=== PATIENT | female | born 2005 | race African-American/Black ===

== ENCOUNTER → 2024-09-01 17:55 | Outpatient (BNVA) | payer OTHER, SELFPAY | DX: J02.8 Acute pharyngitis due to other specified organisms (principal); B97.89 Other viral agents as the cause of diseases classified elsewhere; R30.0 Dysuria | CPT/HCPCS: 81000; 87071; 87880 ==

== ENCOUNTER 2024-09-03 17:19 | Emergency (ER) | payer OTHER, SELFPAY ==
[2024-09-03 17:48] VITALS: BP 93/61; PULSE 112; TEMP 36.8; O2SAT 98; BMI 26.4
--- NOTE | 2024-09-03 19:12 | ED_ITS ---
HPI - Pediatric HENT General: Chief complaint: Headache Stated complaint: migraine Time Seen by Provider: 09/03/24 19:00 History of Present Illness: Patient has been ill for about a 4 days. Patient reports that on Saturday she was seen at urgent care and was thought to have a sinus infection and started on amoxicillin. Patient appears nontoxic. Patient appears no acute distress. Patient complains of headache. Related Data Previous Rx's ?Medication ?Instructions ?Recorded amoxicillin 500 mg capsule 500 mg PO TID #30 caps 08/09 11/29 Allergies Allergy/AdvReac Type Severity Reaction Status Date / Time No Known Allergies Allergy Verified 09/03/24 17:53 Pediatric ROS Review of Systems: ALL SYSTEMS: reviewed and no additional remarkable complaints except as stated PFSH ED PFSH: Social History Smoking and tobacco/nicotine status: never used tobacco/nicotine Pediatric Exam Const: Constitutional General: alert HENMT: Head: normocephalic Eyes: General: appearance normal, both eyes and all related structures Neck: Neck: full ROM Resp: Effort & Inspection: normal respiratory effort Cardio: Palpation: normal PMI GI: Palpation: nontender Spine/Pelvis: Cervical Spine: normal cervical lordosis Neuro: General: Yes tone normal Extrem: General: normal to inspection Course Vital Signs: Vital signs: Vital Signs Temperature 98.2 F 09/03/24 17:48 Pulse Rate 112 H 09/03/24 17:48 Blood Pressure 93/61 09/03/24 17:48 Pulse Oximetry 98 09/03/24 17:48 Oxygen Delivery Me thod Room Air 09/03/24 17:48 Medical Decision Making Medical Decision Making 18-year-old female comes in today with headache and sinus symptoms. Patient has been on amoxicillin since Saturday with minimal relief. Patient appears nontoxic. Respirations are even. Lungs are clear to auscultation. Patient is on extremities well. Vital signs are. Differential diagnosis rhinosinusitis, viral syndrome, influenza. Patient tested positive for influenza A. Reviewed exam with patient with recommendation for treatment and follow-up. Patient reported understanding. Lab Data Laboratory Results Influenza A (PCR) Positive (Negative) 09/03/24 18:40 Influenza Type B (PCR) Negative (Negative) 09/03/24 18:40 RSV (PCR) Negative (Negative) 09/03/24 18:40 SARS-CoV-2 (PCR) Negative (Negative) 09/03/24 18:40 No radiology studies performed this visit Discharge Plan Discharge Patient Disposition: Home Clinical Impression: Flu Condition: Stable Prescriptions: No Action amoxicillin 500 mg capsule 500 mg PO TID Qty: 30 0RF Discharge Orders: Discharge ED (Routine); Ordered 09/03/24 Ordered By: Amor Jolly Discharge Diet: Usual diet Discharge Activity: Increase activity as tolerated Patient Instructions: Flu - Adult Activity Restrictions/Additional Instructions: Drink plenty of fluids. Use acetaminophen and ibuprofen for pain and fever. Follow-up with primary care for further instructions. Return to ED for new concerns. Print Language: American Coding Level of Care Code ED [employer] for Kadeem Dooley
[2024-09-03] MEDS: acetaminophen 500 mg Tablet PO (19:18)
[2024-09-03] MEDS: ibuprofen 200 mg Tablet 400 MG PO (19:18)
[2024-09-03 19:27] LABS: Influenza A POSITIVE (Negative); Influenza B NEGATIVE (Negative); Respiratory Syncytial Virus Ce NEGATIVE (Negative); SARS-CoV-2 PCR NEGATIVE (Negative)
[2024-09-03 19:40] VITALS: BP 93/61; PULSE 112; O2SAT 98
== END 2024-09-03 19:41 | disposition home or self-care (01) ==
PROVIDERS: Emergency Provider Nurse Practitioner Family
DX: J10.1 Influenza due to other identified influenza virus with other respiratory manifestations (principal); Z11.52 Encounter for screening for COVID-19
CPT/HCPCS: 87637; 99283

== ENCOUNTER → 2025-03-26 14:50 | Outpatient (BNVA) | payer MEDICAID, SELFPAY | DX: N92.0 Excessive and frequent menstruation with regular cycle (principal) | CPT/HCPCS: 81025 ==